=== PATIENT | male | born 1980 | race Caucasian/White ===

== ENCOUNTER → 2021-02-28 00:39 | Outpatient (CLI) | payer OTHER, SELFPAY ==
[2021-02-28 23:19] LABS: SARS-CoV-2 RNA PCR Positive
== END ==
PROVIDERS: PCP Emergency Medicine; Visit Provider Emergency Medicine
DX: U07.1 COVID-19 (principal); R51.9 Headache, unspecified
CPT/HCPCS: C9803; U0003; U0005

== ENCOUNTER 2021-06-25 23:21 | Emergency (ER) | payer OTHER, SELFPAY ==
[2021-06-25 23:24] VITALS: BP 197/97; PULSE 92; RESP 16; TEMP 35.8; O2SAT 98
[2021-06-26 02:45] LABS: D Dimer 0.29 ug/mL (<0.48)
--- NOTE | 2021-06-26 02:54 | ED.EXTPRO ---
HPI - Extremity Problem General Chief complaint: Extremity Problem,Nontraumatic Stated complaint: right foot swelling/ pain Time Seen by Provider: 06/26/21 00:03 History of Present Illness HPI Narrative: Patient states for the last 2 and half months he has felt some pain and swelling to his right lower extremity, especially the heel of his foot, his primary doctor has referred him to podiatry. Denies any chest pain, difficulty breathing. Denies any other symptoms. He does state that he is on his feet 9 hours of the day for work. No personal or family history of blood clots. Related Data Home Medications Medication Instructions Recorded Confirmed hydrochlorothiazide 12.5 mg PO DAILY 02/04/19 02/04/19 lisinopril 20 mg PO DAILY 02/04/19 02/04/19 simvastatin 80 mg PO DAILY 02/04/19 02/04/19 Allergies Allergy/AdvReac Type Severity Reaction Status Date / Time No Known Allergies Allergy Verified 02/04/19 16:27 Review of Systems Review of Systems: All systems reviewed & are unremarkable except as noted in HPI and below PMFSH Past Medical History Medical History Hypercholesterolemia Hypertension Surgical History Surgical History Previous back surgery Exam Narrative: EXAMINATION OF ORGAN SYSTEMS/BODY AREAS: Constitutional: Vital signs per nursing GENERAL:[No acute distress, non-toxic appearing.] Overweight. HEAD: Normal with no signs of head trauma. EYES: EOMI, conjunctiva normal ENT: Hearing grossly intact LUNGS: Nonlabored breathing. HEART: [Regular rate and rhythm] ABD: Nondistended EXT: Normal range of motion, obvious swelling of right lower extremity compared to left, no tenderness on palpation, Homans' sign negative SKIN: [No rashes or lesions.] NEURO: [Alert and oriented x 3. No gross focal sensory or strength deficits.] PSYCH: Normal affect Course Course Emergency Course: 41-year-old male presents with 2 months of right lower extremity swelling, vital signs stable, exam unremarkable, will score for DVT is 0, D-dimer here is negative, I discussed with patient I have a very low concern for DVT however he should return in the morning for DVT ultrasound and or come back sooner if he develops any chest pain with breathing. He already has follow podiatry for his pain. I also advised using compression stockings and elevating the legs, follow up with his PCP. Vital Signs Vital signs: Vital Signs Temperature 96.4 F L 06/25/21 23:24 Pulse Rate 92 06/25/21 23:24 Respiratory Rate 16 06/25/21 23:24 Blood Pressure 197/97 H 06/25/21 23:24 Pulse Oximetry 98 06/25/21 23:24 Temperature 96.4 F L 06/25/21 23:24 Pulse Rate 92 06/25/21 23:24 Respiratory Rate 16 06/25/21 23:24 Blood Pressure 197/97 H 06/25/21 23:24 Pulse Oximetry 98 06/25/21 23:24 MDM - Extremity (Nontraumatic) Lab Data Labs: Lab Results 06/26/21 Range/Units 02:27 D-Dimer 0.29 (<0.48) ug/mL Discharge Plan Discharge Prescriptions: No Action lisinopril 20 mg Tablet 20 mg PO DAILY RF: 0 simvastatin 80 mg Tablet 80 mg PO DAILY RF: 0 hydrochlorothiazide 12.5 mg Capsule 12.5 mg PO DAILY RF: 0 ondansetron 8 mg tablet,disintegrating 8 mg PO Q6-8H PRN (Reason: nausea and vomiting) Qty: 15 RF: 0
[2021-06-26 03:20] VITALS: BP 154/92; PULSE 90; RESP 22; O2SAT 95
== END 2021-06-26 03:20 | disposition home or self-care (01) ==
PROVIDERS: Emergency Provider Emergency Medicine; PCP Emergency Medicine
DX: R60.0 Localized edema (principal); G89.29 Other chronic pain; M79.671 Pain in right foot; I10 Essential (primary) hypertension
CPT/HCPCS: 36415; 85380; 99283

== ENCOUNTER 2021-12-31 10:08 | Emergency (ER) | payer MEDICAID, SELFPAY ==
--- NOTE | ~2021-12-31 | US_ITS ---
EXAMINATION: US venous doppler [facility] DATE: 12/31/2021 13:18 INDICATION: Lower limb pain. TECHNIQUE: Grayscale ultrasound images without and with compression and Doppler ultrasound images of the bilateral lower extremity veins were obtained. COMPARISON: None. FINDINGS: The visualized portions of right common femoral vein, profunda (deep) femoral vein, femoral vein, pop liteal vein, peroneal veins, posterior tibial veins, and greater saphenous vein outflow are patent. The visualized portions of left common femoral vein, profunda femoral vein, femoral vein, popliteal v ein, peroneal veins, posterior tibial veins, and greater saphenous vein outflow are patent. IMPRESSION: 1. No deep venous thrombosis. Reviewed, dictated and finalized at location A. 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
[2021-12-31 11:04] VITALS: BP 152/96; PULSE 98; RESP 18; TEMP 36.4; O2SAT 98
[2021-12-31 11:46] LABS: Basophils Percent Auto 0.3 % (0.2-1.2); Eosinophils Absolute Auto 0.3 K/mm3 (0-0.3); Eosinophils Percent Auto 3.5 % (0-4.4); Hematocrit 41.9 % (42.0-52.0); Immature Granulocyte Absolute 0.03 K/mm3 (0.00-0.031); Immature Granulocyte Percent A 0.4 % (0-0.5); Lymphocytes Percent Auto 17.5 % (18.3-44.2); Mean Corpuscular HGB Conc 33.4 g/dl (32-36); Mean Corpuscular Hemoglobin 29.6 pg (26-34); Mean Corpuscular Volume 88.6 fl (80-100); Mean Platelet Volume 9.2 fl (7.4-10.4); Monocytes Absolute Auto 0.6 K/mm3 (0.1-0.6); Monocytes Percent Auto 7.9 % (2.6-8.5); Neutrophils Absolute Auto 5.6 K/mm3 (1.3-6.7); Neutrophils Percent Auto 70.4 % (45.5-73.1); Platelet Count Result 273 k/mm3 (150-375); Red Blood Count 4.73 M/mm3 (4.6-6.20); Red Cell Distribution Width 12.3 % (11.5-14.5)
[2021-12-31 11:56] LABS: Anion Gap 7 mmol/L (8-16); Blood Urea Nitrogen 12 mg/dL (9-20); Carbon Dioxide 30 mmol/L (22-30); Chloride 100 mmol/L (98-107); Estimated CRCL calculation 175 ml/min; Estimated Glomerular Filt Rate > 60; Glucose 135 mg/dL (65-110); Potassium 3.7 mmol/L (3.4-5.0); Sodium 137 mmol/L (137-145)
[2021-12-31 12:09] LABS: INR 1.1; Prothrombin Time 13.5 Seconds (11.1-14.7)
[2021-12-31 12:10] LABS: Partial Thromboplastin Time 27.5 SECONDS (22.3-36.8)
--- NOTE | 2021-12-31 12:23 | ECG_ITS ---
Measurements Intervals [place] Rate: 74 P: 14 VA: 195 QRS: 2 QRSD: 106 T: 17 QT: 371 QTc: 412 Interpretive Statements SINUS RHYTHM POSSIBLE LEFT VENTRICULAR HYPERTROPHY BASELINE ARTIFACT- I, II, III, AVF BORDERLINE ECG NO PREVIOUS ECG AVAILABLE FOR COMPARISON Electronically Signed On 12-31-2021 13:34:56 LUGGAGE REPAIRER by Basilio Martinez D.O.
--- NOTE | 2021-12-31 12:28 | ED.GENADULT ---
HPI - General Adult General Chief complaint: Extremity Problem,Nontraumatic Stated complaint: bilateral leg swelling Time Seen by Provider: 12/31/21 12:07 Source: RN notes reviewed History of Present Illness HPI narrative: Patient presents emergency department from home for leg edema. Patient states symptoms began 2 months ago. States he is noted swelling in his legs and has not resolved. He states he is noted to have some aching in his legs with the symptoms. He denies having any chest pain or shortness of breath he states he is had no previous evaluation for the swelling and had been down in [place] when it started he called his PCP and was directed to come emergently to the emergency department for further evaluation he denies any history of heart failure he denies any history of blood clots denies any fevers or chills Related Data Home Medications Medication Instructions Recorded Confirmed hydrochlorothiazide 12.5 mg capsule 12.5 mg PO DAILY 02/04/19 02/04/19 lisinopril 20 mg tablet 20 mg PO DAILY 02/04/19 02/04/19 simvastatin 80 mg tablet 80 mg PO DAILY 02/04/19 02/04/19 Allergies Allergy/AdvReac Type Severity Reaction Status Date / Time No Known Allergies Allergy Verified 02/04/19 16:27 Review of Systems Review of Systems: Gen.: Denies fevers or chills ENT: Denies congestion Respiratory: Denies shortness of breath or cough CV: Denies chest pain or palpitations GI: Denies abdominal pain nausea, emesis Musculoskeletal: See HPI Neuro: Denies numbness, tingling, weakness or focal weakness Skin: Denies rash Except as documented, all other systems reviewed and negative [facility] Past Medical History Medical History Hypercholesterolemia Hypertension Surgical History Surgical History Previous back surgery Social History Social History (Updated 12/31/21 @ 12:29 by Harry John DO) Smoking status: Never smoker Exam Narrative: APPEARANCE: No acute distress, nontoxic, resting in bed EYES: EOMI HEENT: Normocephalic, atraumatic, OMM RESPIRATORY: No respiratory distress Clear to auscultation bilaterally with no rhonchi wheezing or rales. CARDIOVASCULAR: Regular rate and rhythm without murmurs rubs or gallops. ABDOMINAL: Soft, nontender, nondistended, no rebound or guarding MUSCULOSKELETAl: Moves all extremities. No clubbing, cyanosis 3+ edema bilateral lower extremities bilateral dorsalis pedis pulse 2+ no tenderness of the bilateral hips knees or ankles with full range of motion of all NEURO: Awake and alert. Following commands, speech normal, no focal deficits SKIN:: Warm, dry. No rashes lesions or abrasions PSYCHIATRIC: Normal affect/mood, Course Course Emergency Course: Discussed with patient results of workup and diagnosis. Discussed need for follow-up with primary care, proper use of medication, and reasons to return to the emergency department. Patient understands and agrees to current treatment plan Vital Signs Vital signs: Vital Signs Temperature 97.5 F L 12/31/21 11:04 Pulse Rate 98 12/31/21 11:04 Respiratory Rate 18 12/31/21 11:04 Blood Pressure 152/96 H 12/31/21 11:04 Pulse Oximetry 98 12/31/21 11:04 Oxygen Delivery Room Air 12/31/21 11:04 Temperature 97.5 F L 12/31/21 11:04 Pulse Rate 98 12/31/21 11:04 Respiratory Rate 18 12/31/21 11:04 Blood Pressure 152/96 H 12/31/21 11:04 Pulse Oximetry 98 12/31/21 11:04 Oxygen Delivery Room Air 12/31/21 11:04 Medical Decision Making Vital Signs Vital Signs: Vital Signs Temperature 97.5 F L 12/31/21 11:04 Pulse Rate 98 12/31/21 11:04 Respiratory Rate 18 12/31/21 11:04 Blood Pressure 152/96 H 12/31/21 11:04 Pulse Oximetry 98 12/31/21 11:04 Oxygen Delivery Room Air 12/31/21 11:04 Temperature 97.5 F L 12/31/21 11:04 Pulse Rate 98 12/31/21 11:04 Respiratory Rate 18 12/31
[2021-12-31 12:54] LABS: NT Pro B Type Natriuretic Pept 30 pg/mL (5-100)
== END 2021-12-31 14:22 | disposition home or self-care (01) ==
PROVIDERS: Emergency Medicine; Emergency Provider Emergency Medicine; PCP Emergency Medicine
DX: R60.0 Localized edema (principal); E78.00 Pure hypercholesterolemia, unspecified; I10 Essential (primary) hypertension; R94.31 Abnormal electrocardiogram [ECG] [EKG]
CPT/HCPCS: 36415; 80048; 83880; 85025; 85610; 85730; 93005; 93970; 99284

== ENCOUNTER 2022-02-09 09:10 | Emergency (ER) | payer OTHER, SELFPAY ==
[2022-02-09 10:00] VITALS: BP 164/119; PULSE 85; RESP 16; TEMP 36.6; O2SAT 99
--- NOTE | 2022-02-09 10:23 | ED.URI ---
HPI - URI/Sore Throat General Chief Complaint: Upper Respiratory Infection Stated Complaint: sore/swollen throat Time Seen by Provider: 02/09/22 10:23 Source: patient and RN notes reviewed Mode of arrival: ambulatory Limitations: no limitations History of Present Illness HPI Narrative: 41 y/o male presented for c/o swollen uvula. Endorses nasal congestion and cough with mild sore throat. States he coughed this morning and the sputum 'was connected.' So he looked in his throat and saw the enlarged uvula. Rates throat Pain 5/10. Has not taken anything for symptoms. Not vaccinated for flu or covid. Hx HTN. Unsure if he took his bp medication today, stating his father recently and his stress level is high. MD elicited complaint: cough Related Data Home Medications Medication Instructions Recorded Confirmed hydrochlorothiazide 12.5 mg capsule 12.5 mg PO DAILY 02/04/19 02/09/22 lisinopril 20 mg tablet 40 mg PO DAILY 02/04/19 02/09/22 simvastatin 80 mg tablet 80 mg PO DAILY 02/04/19 02/09/22 carvedilol 12.5 mg tablet 12.5 mg PO BID 02/09/22 02/09/22 Allergies Allergy/AdvReac Type Severity Reaction Status Date / Time No Known Allergies Allergy Verified 02/09/22 10:09 Review of Systems Review of Systems: CONSTITUTIONAL: Denies malaise, chills, sweats, fever EYES: Denies visual changes, redness, or discharge ENT: Reports rhinorrhea, , sore throat denies otalgia CARDIOVASCULAR: Denies chest pain, palpitations, edema RESPIRATORY: Reports cough, post nasal drainage. Denies dyspnea GASTROINTESTINAL: Denies abdominal pain, nausea, vomiting, diarrhea SKIN: Denies rash or itching MUSCULOSKELETAL:denies myalgia NEUROLOGIC: Denies headache PMFSH Past Medical History Medical History Hypercholesterolemia Hypertension Surgical History Surgical History Previous back surgery Social History Social History Smoking status: Never smoker Exam Narrative: GENERAL: well-appearing, nontoxic EYES: PERRLA, conjunctivae clear ENT: Mucous membranes moist. TMs pearly mccormick with dull light reflex bilaterally; no tragal tenderness. Oropharynx erythematous without lesions or exudate, Uvula appears elongated and mildly erythematous; no drooling, no hoarseness, no trismus, uvula midline. No tripod positioning, muffled voice, soft palate or pharyngeal wall bulging NECK: Supple. No lymphadenopathy CHEST: Clear to auscultation, breath sounds equal. HEART: Regular rate and rhythm. No murmur heard. SKIN: Warm, dry, no rash. NEURO: Alert and oriented x3. PSYCH: Normal mood and affect Course Course Emergency Course: Patient is aware of diagnosis, understands and agrees to treatment plan. Anticipatory guidance given. Patient agrees to follow-up as directed and is aware of reasons to seek care at the emergency department. Portions of this record may have been created with voice recognition software Level of Care: Express Care Visit Vital Signs Vital signs: Vital Signs Temperature 97.8 F 02/09/22 10:00 Pulse Rate 85 02/09/22 10:00 Respiratory Rate 16 02/09/22 10:00 Blood Pressure 164/119 H 02/09/22 10:00 Pulse Oximetry 99 02/09/22 10:00 Oxygen Delivery Room Air 02/09/22 10:00 Temperature 97.8 F 02/09/22 10:00 Pulse Rate 85 02/09/22 10:00 Respiratory Rate 16 02/09/22 10:00 Blood Pressure 164/119 H 02/09/22 10:00 Pulse Oximetry 99 02/09/22 10:00 Oxygen Delivery Room Air 02/09/22 10:00 reviewed MDM - URI/Sore Throat MDM Narrative Medical decision making narrative: Due to lack of resources, unable to test for rapid strep at this time. Patient verbalizes understanding. Will send strep culture. Advised supportive measures and signs and symptoms to go to the ER. Patient is unsure if he took his blood pressure med
== END 2022-02-09 10:37 | disposition home or self-care (01) ==
PROVIDERS: Emergency Provider Nurse Practitioner Family; PCP Emergency Medicine
DX: K12.2 Cellulitis and abscess of mouth (principal); E78.00 Pure hypercholesterolemia, unspecified; I10 Essential (primary) hypertension
CPT/HCPCS: 87081; 99213; G0463

== ENCOUNTER 2022-02-09 14:04 | Emergency (ER) | payer OTHER, SELFPAY ==
--- NOTE | ~2022-02-09 | CT_ITS ---
EXAMINATION: CT soft tissue neck w con DATE: 02/09/2022 15:15 INDICATION: Muffled voice. Severe sore throat. TECHNIQUE: Computed tomography (CT) of the neck was performed with 75 mL Omnipaque-350 intravenous co ntrast. Automated exposure control and iterative reconstruction technique were employed. The dose-dilan gth product was 670.22 mGy-cm. COMPARISON: None FINDINGS: Orbits are normal. The paranasal sinuses are clear. Visualized sinuses and mastoid air cells are well aerated. Submandibular and parotid glands are normal and symmetric. Thyroid gland is normal. There a re scattered normal-sized lymph nodes in the neck, no lymphadenopathy. No masses identified. The vas culature is patent and normal in caliber. There are few tiny dystrophic calcifications in the bilater al palatine tonsils which are otherwise unremarkable. Prevertebral soft tissues are normal as is the epiglottis and aryepiglottic folds. Parapharyngeal soft tissues are unremarkable. Airway is widely pa tent throughout. No soft tissue abscess. Superior mediastinum is unremarkable. Lung apices are normal . The left maxillary central incisor is absent. Straightening of the normal cervical lordosis with mi ld spondylosis. IMPRESSION: 1. Airways widely patent with no abscess or parapharyngeal soft tissue swelling. Reviewed, dictated and finalized at location A. CH SERVICE SPECIALIST IMPRESSION: 1. Airways widely patent with no abscess or parapharyngeal soft tissue swelling .
[2022-02-09 14:07] VITALS: BP 176/99; PULSE 104; RESP 16; TEMP 36.8; O2SAT 95
--- NOTE | 2022-02-09 14:39 | ED.GENADULT ---
HPI - General Adult General Chief complaint: Unspecified Stated complaint: uvula swelling, diifficulty breathing Time Seen by Provider: 02/09/22 14:15 History of Present Illness HPI narrative: Patient is a 41-year-old male here for evaluation of sore throat over the past day. Patient states that his pain came on gradually. Last night he noticed that his uvula was swollen and he has had difficulty breathing, nausea and gagging. Presented to an urgent care facility today who referred him to the ED. Denies sick contacts, fevers or chills, decreased range of motion in the neck. Related Data Home Medications Medication Instructions Recorded Confirmed hydrochlorothiazide 12.5 mg capsule 12.5 mg PO DAILY 02/04/19 02/09/22 lisinopril 20 mg tablet 40 mg PO DAILY 02/04/19 02/09/22 simvastatin 80 mg tablet 80 mg PO DAILY 02/04/19 02/09/22 carvedilol 12.5 mg tablet 12.5 mg PO BID 02/09/22 02/09/22 Allergies Allergy/AdvReac Type Severity Reaction Status Date / Time No Known Allergies Allergy Verified 02/09/22 10:09 Review of Systems Review of Systems: Gen: Denies fevers or chills Eyes: Denies eye pain or visual change ENT: Reports sore throat Respiratory: Denies shortness of breath or cough CV: Denies chest pain or palpitations GI: Denies abdominal pain nausea, emesis or diarrhea denies burning, urgency, frequency or hematuria Musculoskeletal: Denies back pain or muscle pain Neuro: Denies numbness, tingling, weakness or focal weakness Skin: Denies rash Except as documented, all other systems reviewed and negative PMFSH Past Medical History Medical History Hypercholesterolemia Hypertension Surgical History Surgical History Previous back surgery Social History Social History Smoking status: Never smoker Exam Narrative: APPEARANCE: Well appearing, no pain in distress, well-nourished. Head: Normocephalic and atraumatic. EYES: PERRLA/EOMI, conjunctivae clear NOSE: No nasal drainage EARS: External ear normal in appearance THROAT: Uvula is swollen in appearance with an exudate at the bottom. Tonsils are normal in appearance with no exudates or swelling. Muffled voice. NECK: Supple. No adenopathy, no masses. RESPIRATORY: Airway patent, respirations nonlabored. Clear to auscultation bilaterally, no rales, rhonchi, wheezing. CARDIOVASCULAR: Regular rate and rhythm without murmurs, rubs, or gallops. ABDOMINAL: Normoactive bowel sounds. Soft, nontender, nondistended. No rebound tenderness or guarding. MUSCULOSKELETAL: Extremities are warm and well-perfused. Moves all extremities well. No edema. NEURO: Normal speech. No focal neurologic deficits. SKIN: Skin is warm and dry. No rashes. PSYCHIATRIC: Normal affect/mood. Course Vital Signs Vital signs: Vital Signs Temperature 98.2 F 02/09/22 14:07 Pulse Rate 104 H 02/09/22 14:07 Respiratory Rate 16 02/09/22 14:07 Blood Pressure 176/99 H 02/09/22 14:07 Pulse Oximetry 95 02/09/22 14:07 Oxygen Delivery Room Air 02/09/22 14:07 Temperature 98.2 F 02/09/22 14:07 Pulse Rate 96 02/09/22 14:57 Respiratory Rate 12 02/09/22 14:57 Blood Pressure 130/89 02/09/22 14:57 Pulse Oximetry 98 02/09/22 14:57 Oxygen Delivery Room Air 02/09/22 14:07 Medical Decision Making [facility] Narrative Medical decision making narrative: 41-year-old male here for evaluation of uvular swelling and sore throat over the past day. He has a swollen uvula and muffled voice on exam but is tolerating his secretions. Vital signs are normal. Basic labs unremarkable. CT soft tissue neck shows a widely patent airway and no visible RTA or [employer]W FOREMAN. Patient was given steroids, antibiotics and Toradol in the ED with improvement of his symptoms. Likely uvulitis. He be discharged home with steroids
[2022-02-09] MEDS: methylPREDNISolone SOD SUCC 125 MG VIAL IV PUSH (14:42)
[2022-02-09] MEDS: SODIUM CHLORIDE 0.9% IV 1,000 ML 999 ML IV CONT (14:42)
[2022-02-09] MEDS: AMPICILLIN SULB 1.5 GM/NS 50ML 1.5 GM/50 ML VIAL IVPB (14:44)
[2022-02-09 14:45] LABS: Strep Group A RT-PCR NOT DETECTED (Negative)
[2022-02-09 14:48] LABS: Basophils Percent Auto 0.2 % (0.2-1.2); Eosinophils Absolute Auto 0.4 K/mm3 (0-0.3); Eosinophils Percent Auto 4.6 % (0-4.4); Hematocrit 42.9 % (42.0-52.0); Hemoglobin 14.4 g/dL (14.0-18.0); Immature Granulocyte Absolute 0.06 K/mm3 (0.00-0.031); Immature Granulocyte Percent A 0.6 % (0-0.5); Lymphocytes Absolute Auto 1.74 K/mm3 (0.9-3.2); Lymphocytes Percent Auto 18.7 % (18.3-44.2); Mean Corpuscular HGB Conc 33.6 g/dl (32-36); Mean Corpuscular Hemoglobin 29.1 pg (26-34); Mean Corpuscular Volume 86.7 fl (80-100); Mean Platelet Volume 8.9 fl (7.4-10.4); Monocytes Absolute Auto 0.7 K/mm3 (0.1-0.6); Monocytes Percent Auto 7.8 % (2.6-8.5); Neutrophils Absolute Auto 6.3 K/mm3 (1.3-6.7); Neutrophils Percent Auto 68.1 % (45.5-73.1); Platelet Count Result 362 k/mm3 (150-375); Red Blood Count 4.95 M/mm3 (4.6-6.20); Red Cell Distribution Width 12.8 % (11.5-14.5); White Blood Count 9.3 K/mm3 (4.5-10.0)
[2022-02-09 14:57] VITALS: BP 130/89; PULSE 96; RESP 12; O2SAT 98
[2022-02-09 15:04] LABS: Alanine Aminotransferase 42 U/L (6-50); Albumin Level 4.4 g/dL (3.5-5.1); Alkaline Phosphatase 68 U/L (38-126); Anion Gap 7 mmol/L (8-16); Aspartate Amino Transferase 38 U/L (17-59); Bilirubin,Total 1.2 mg/dL (0.2-1.3); Blood Urea Nitrogen 7 mg/dL (9-20); Calcium 9.1 mg/dL (8.4-10.2); Carbon Dioxide 28 mmol/L (22-30); Chloride 102 mmol/L (98-107); Estimated CRCL calculation 198 ml/min; Estimated Glomerular Filt Rate > 60; Glucose 130 mg/dL (65-110); Potassium 3.2 mmol/L (3.4-5.0); Sodium 137 mmol/L (137-145)
[2022-02-09 15:05] LABS: Lactic Acid Reflex 2.5 mmol/L (0.7-2.0)
[2022-02-09] MEDS: KETOROLAC 15 MG/ML VIAL (*BKC) IV PUSH (15:50)
[2022-02-09 17:44] LABS: Reflex Lactic Acid Yes or No Add Lactic
== END 2022-02-09 16:44 | disposition home or self-care (01) ==
PROVIDERS: Family Medicine; Emergency Provider Physician Assistant; PCP Emergency Medicine
DX: K12.2 Cellulitis and abscess of mouth (principal); I10 Essential (primary) hypertension; E78.5 Hyperlipidemia, unspecified
CPT/HCPCS: 36415; 70491; 80053; 83605; 85025; 87081; 87651; 96361; 96365; 96375; 99284; J0295; J1885; J2930; J7030; Q9967

== ENCOUNTER 2022-02-19 18:57 | Emergency (ER) | payer OTHER, SELFPAY ==
[2022-02-19 19:41] VITALS: BP 141/85; PULSE 99; RESP 20; TEMP 36.8; O2SAT 99
--- NOTE | 2022-02-19 20:05 | ED.MALEGU ---
HPI - Male Genitourinary General Chief complaint: Urogenital-Male Stated complaint: std testing Time Seen by Provider: 02/19/22 20:07 Source: patient, RN notes reviewed and old records reviewed Mode of arrival: ambulatory Limitations: no limitations History of Present Illness HPI Narrative: 41 year old male presents to [facility] care reporting that he was recently treated for you uvulitis with Augmentin then has developed red excoriation to penis area and painful head of his penis, he is uncircumcised and is unsure if he has had any drainage for past week. is having vaginal discharge and is concerned of possible STD exposure from who had admitted to him of having sexual encounter with other partner.Patient denies any fevers chills or sweats. MD Complaint: penile discharge (excoriation) and possible STD exposure Related Data Home Medications Medication Instructions Recorded Confirmed hydrochlorothiazide 12.5 mg capsule 12.5 mg PO DAILY 02/04/19 02/19/22 lisinopril 20 mg tablet 40 mg PO DAILY 02/04/19 02/19/22 simvastatin 80 mg tablet 80 mg PO DAILY 02/04/19 02/19/22 carvedilol 12.5 mg tablet 12.5 mg PO BID 02/09/22 02/19/22 Allergies Allergy/AdvReac Type Severity Reaction Status Date / Time No Known Allergies Allergy Verified 02/09/22 10:09 Review of Systems Review of Systems: CONSTITUTIONAL: Denies fever, chills, or sweats. CARDIOVASCULAR: Denies chest pain, palpitations, or edema. RESPIRATORY: Denies cough or dyspnea. GASTROINTESTINAL: Denies abdominal pain, nausea, vomiting, or diarrhea. GENITOURINARY: Reports dysuria, frequency, urgency. Denies flank pain or hematuria. SKIN: reports red excoriation to uncircumcised penis and redness of penis is unsure if any drainage from penis MUSCULOSKELETAL: Denies back pain or myalgia. Denies CVA tenderness NEUROLOGIC: Denies headache All systems reviewed & are unremarkable except as noted in HPI and below PMFSH Past Medical History Medical History Hypercholesterolemia Hypertension Surgical History Surgical History Previous back surgery Social History Social History Smoking status: Never smoker Comments At time of signature, agree with nursing past medical, surgical, social and family history. There is no relevant family history pertinent to the presenting complaint Exam Narrative: GENERAL: Well-appearing, well-nourished, and in no acute distress. HEAD: Normocephalic, atraumatic. NECK: Supple. no lymphadenopathy CHEST: Clear to auscultation. No respiratory distress.SAO2 99% on room air HEART: Regular rate and rhythm. No murmur heard. Normal peripheral pulses. ABDOMEN: Soft, nontender, nondistended, normal active bowel sounds. No CVA tenderness EXTREMITIES: Normal range of motion. No edema. SKIN: Warm, dry, red excoriation to uncircumcised tissue area with redness at tip of penis no noted penis dischargearge NEURO: No focal deficits. Alert and oriented x3. Course Course Emergency Course: Patient is aware of diagnosis, understands and agrees to treatment plan.? Anticipatory guidance given.? Patient agrees to follow-up as directed and is aware of reasons to seek care at the emergency department. Portions of this record may have been created with voice recognition software Level of Care: Express Care Visit Vital Signs Vital signs: Vital Signs Temperature 36.8 C 02/19/22 19:41 Pulse Rate 99 02/19/22 19:41 Respiratory Rate 20 02/19/22 19:41 Blood Pressure 141/85 H 02/19/22 19:41 Pulse Oximetry 99 02/19/22 19:41 Temperature 36.8 C 02/19/22 19:41 Pulse Rate 99 02/19/22 19:41 Respiratory Rate 20 02/19/22 19:41 Blood Pressure 141/85 H 02/19/22 19:41 Pulse Oximetry 99 02/19/22 19:41 MDM - Male Genitourinary MDM Narrative Medical decision making narrativ
[2022-02-19] MEDS: cefTRIAXone 1 GM, LIDOCAINE HCL 1% LOCAL INJ 2.1 ML IM (20:38)
== END 2022-02-19 20:58 | disposition home or self-care (01) ==
PROVIDERS: Emergency Provider Registered Nurse
DX: N48.89 Other specified disorders of penis (principal); E78.00 Pure hypercholesterolemia, unspecified; I10 Essential (primary) hypertension
CPT/HCPCS: 81003; 87491; 87591; 87661; 96372; 99213; G0463; J0696

== ENCOUNTER 2024-02-26 19:51 | Emergency (ER) | payer OTHER, SELFPAY ==
--- NOTE | 2024-02-26 19:58 | ED.EXTPRO ---
HPI - Extremity Problem General Chief complaint: Extremity Injury, Lower Stated complaint: knot on left leg Time Seen by Provider: 02/26/24 19:58 Source: patient Mode of arrival: ambulatory Limitations: no limitations History of Present Illness HPI Narrative: Diogo is a 43-year-old male patient presenting to the clinic today with complaints of a knot on his left medial leg x2 days. He reports he noticed a red bump and it has gotten more swollen and slightly painful. Recently had a tattoo in this area. Denies any chest pain or shortness of breath. Denies any pain with walking. Area is mildly tender to palpation with erythema and cellulitic appearing rash Related Data Home Medications ?Medication ?Instructions ?Recorded ?Confirmed ?Last Taken ?Type hydrochlorothiazide 12.5 mg capsule 12.5 mg PO DAILY 02/04/19 02/26/24 Unknown History lisinopril 20 mg tablet 40 mg PO DAILY 02/04/19 02/26/24 Unknown History simvastatin 80 mg tablet 80 mg PO DAILY 02/04/19 02/26/24 Unknown History carvedilol 12.5 mg tablet 12.5 mg PO BID 02/09/22 02/26/24 Unknown History Allergies Allergy/AdvReac Type Severity Reaction Status Date / Time No Known Allergies Allergy Verified 02/26/24 19:58 Review of Systems Review of Systems: Pertinent positives per HPI. Patient denies any fever, chills, rash, headache, visual changes, dizziness, cough, runny nose, sore throat, shortness of breath, chest pain, palpitations, nausea, vomiting, diarrhea, constipation, abdominal pain, or any urinary issues. [facility] Past Medical History Medical History Hypertension Hypercholesterolemia Surgical History Surgical History Previous back surgery Social History Social History Smoking status: Never smoker Comments At the time of my signature, I reviewed and agree with the nursing past medical, surgical, social, and family history. There is no relevant family history pertinent to the patient complaint. Exam Narrative: General: Well-developed, morbidly obese, in no apparent distress Head: Normocephalic, atraumatic. Cardio: Regular rate and rhythm, s1 and s2 normal, no murmur appreciated. Resp: Clear to auscultation bilaterally, no rhonchi, rales, wheezing or rubs. Integumentary: [place], warm, and dry, mildly tender, red, erythema, cellulitis to the left medial lower leg, non circumferential, no discharge, negative Alissa sign Course Course Emergency Course: Portions of this record may have been created with voice recognition software. Level of Care: Express Care Visit Vital Signs Vital signs: Vital signs reviewed MDM - Extremity (Nontraumatic) MDM Narrative Medical decision making narrative: At the time of visit patient is resting comfortably on the exam table. Patient appears to be nontoxic. Plan: Patient has localized cellulitis to the left medial lower extremity. Patient history of diabetes type 2, hypertension, and high cholesterol. Patient is also morbidly obese. Will place patient on cephalexin and doxycycline and given strict instructions to go to the emergency room if redness, swelling, or pain increases. He is to follow-up with his primary care in 2-3 days for recheck. Supportive measures were discussed with the patient and they voiced understanding discharge instructions and agrees to treatment plan. Return precautions reviewed Differential Diagnosis Differential diagnosis: Likely herpes zoster, gout, cellulitis, superficial thrombophlebitis, deep venous thrombosis of upper extremity, lower extremity edema and deep vein thrombosis of lower extremity Discharge Plan Discharge Clinical Impression: Cellulitis Qualifiers: Site of cellulitis: extremity Site of cellulitis of extremity: lower extremity Laterality: left Qualified Code(s): L03.116 - Cellulitis of left lower limb Patient Disposition: Home, Self-Care Condition: Stable Instructions: Antibiotic Form, Cellulitis (ED) Additional Instructions: I suspect you have left lower leg cellulitis. Take doxycycline and cephalexin as prescribed Follow-up with your doctor in 2-3 days May take Tylenol/Motrin as needed for pain or fever Continue current medications If you develop redness, worsening, swelling, fever, chills, shortness breath, or chest pain recommend going to the emergency room immediately Patient Language: [place] Prescriptions: New cephalexin 500 mg tablet 500 mg PO Q6H 10 Days Qty: 40 0RF doxycycline monohydrate 100 mg capsule 100 mg PO BID 10 Days Qty: 20 0RF No Action lisinopril 20 mg Tablet 40 mg PO DAILY simvastatin 80 mg Tablet 80 mg PO DAILY hydrochlorothiazide 12.5 mg Capsule 12.5 mg PO DAILY carvedilol 12.5 mg tablet 12.5 mg PO BID nystatin-triamcinolone 100,000-0.1 unit/gram-% ointment 1 applic topical BID Qty: 60 0RF metronidazole 500 mg tablet 500 mg PO Q12H Qty: 14 0RF Follow-up/Referrals: Chicho,Aliya Sofia PA-C [Primary Care Provider] - Time of Disposition: 20:09 Quality NIHSS Nursing Documentation ED NIHSS nursing documentation: reviewed/agree
[2024-02-26 20:01] VITALS: BP 157/97; PULSE 100; RESP 16; TEMP 36.6; O2SAT 98
== END 2024-02-26 20:16 | disposition home or self-care (01) ==
PROVIDERS: Emergency Provider Nurse Practitioner Family; PCP Physician Assistant
DX: L03.116 Cellulitis of left lower limb (principal); I10 Essential (primary) hypertension; E78.00 Pure hypercholesterolemia, unspecified
CPT/HCPCS: 99213; G0463